=== PATIENT | female | born 1945 | race Caucasian/White ===

== ENCOUNTER 2024-11-20 07:41 | Outpatient (CLI) | payer MEDICARE, SELFPAY ==
[2024-11-20 08:20] VITALS: BP 125/58; PULSE 66; RESP 18; TEMP 36.2; O2SAT 96
[2024-11-20 08:46] VITALS: BP 144/70; PULSE 72; RESP 18; O2SAT 100
[2024-11-20] MEDS: LIDOCAINE 1% (PF) 5 ML INJ (08:48)
[2024-11-20 08:52] VITALS: BP 150/86; PULSE 66; O2SAT 100
[2024-11-20 08:53] VITALS: BP 150/67; PULSE 71; RESP 18; O2SAT 97
--- NOTE | 2024-11-20 12:05 | P.PCN_ITS ---
Date/Time/Diagnoses Date of procedure: 10/09/24 Time of procedure: 08:30 Pre-procedure diagnosis: Lumbar radiculopathy, lumbar stenosis Post-procedure diagnosis: same Procedure Notes Procedure: Interlaminar epidural steroid injection L4-5 Indications: Lumbar radiculopathy, stenosis Physician: Ricardo Mary Total sedation minutes: 0 Complications: none Procedure in detail & Post-procedure care: Patient is here for the planned procedure today as noted. No significant change since the last office visit. For additional clinical scenario please see those office notes. Focused exam: Vital signs reviewed as charted on intake. Gen: Well developed. No acute distress. CV: RRR, no M/R/G Chest: Non-labored breathing, CTAB. Psych: Alert and well-oriented. Mood/Affect: normal. Patient suitable for the planned procedure today: Yes === The following procedure was performed in the office today: Lumbar Epidural Steroid Injection with fluoroscopic guidance - Interlaminar approach (65447) Levels Treated: L4-5 Approach: interlaminar Soft tissue: [1% lidocaine 2 mL] Test dose: [1% lidocaine 1 mL] Injectate: 0.75 mL of Depo-Medrol (80mg/mL) in 1.25 mL 1% lidocaine and 1 mL normal saline Fluoroscopy Agent: Isovue 300-M 1.5 mL Notes: Left paramedian approach. 3.5 in 20 gauge Touhy needle utilized and adequate. Preprocedure pain 3/10, postprocedure pain 0/10. Procedure: After discussing the risks, benefits, and alternatives to the procedure, the patient expressed understanding and wished to proceed. The risks include but are not limited to infection, allergic reaction, nerve damage, stroke, paralysis, epidural hematoma, syncope, headache, respiratory or cardiac arrest, spinal cord injury, and scar formation. Informed consent was obtained and all patient questions were answered. The patient was brought to the procedure suite and placed in the prone position. A pre-procedural pause was conducted to verify: correct patient identity, procedure to be performed and as applicable, correct side and site, correct patient position, and any special requirements. Using a paramedian approach from the side noted above, the region overlying the target was localized under fluoroscopic visualization and the soft tissues overlying this structure were infiltrated with the anesthetic listed above. With fluoroscopic guidance, a #20 gauge Tuohy needle (unless otherwise noted) was inserted into the epidural space using a paramedian approach. The epidural space was localized utilizing intermittent multiplanar fluoroscopic guidance and loss of resistance technique. After negative aspiration, the contrast noted ab ove was injected into the epidural space and the flow of contrast was observed, confirming epidural spread without evidence of intravascular or intrathecal spread. Multi-planar radiographs were obtained for documentation purposes. A test dose of lidocaine was injected into the above noted epidural space, and the patient was observed for 30-60 seconds. No sensory deficits were reported and normal lower extremity motor function was noted. Subsequently, the injectate as noted above was administered into the level noted above. The patient tolerated the procedure well and was discharged after an appropriate period of observation. If there are any complications, the patient was instructed to call us. The patient is to follow-up with the requesting provider in 2-3 weeks. This note was compiled using voice recognition software and therefore may contain typos. Please contact the author with any questions or concerns.
== END 2024-11-20 09:00 | disposition home or self-care (01) ==
LOC: RAD 07:42
PROVIDERS: PCP Orthopaedic Surgery; Referring Provider Orthopaedic Surgery; Visit Provider Physical Medicine & Rehabilitation
DX: M54.16 Radiculopathy, lumbar region (principal); M48.061 Spinal stenosis, lumbar region without neurogenic claudication
CPT/HCPCS: 62323; J1010